=== PATIENT | female | born 1965 | race Caucasian/White ===

== ENCOUNTER 2018-01-04 03:29 | Emergency (ER) | payer OTHER ==
[~2018-01-04 03:29] MED LIST: ADULT WAL-100 MG/5 M PO; AUGMENTIN 875-1 EACH PO; AUGMENTIN400 MG/53; BACTRIM DS TAB1 EACH PO; FLEXERIL PO; HYDROCODON-ACE1 EAC7 PO; LORTAB 5 MG/5001 TAB PO; NAPROSYN500 MG PO; NOHOMEMEDICATIONS; NORCO 5-325 TA1 EACH PO; PERCOCET 5-3251 EACH PO; TRAMADOL 50 MG50 MG PO
== END 2018-01-04 03:38 | disposition home or self-care (01) ==
LOC: ER 03:29
DX: Z53.21 Procedure and treatment not carried out due to patient leaving prior to being seen by health care provider (principal)